=== PATIENT | female | born 1965 | race Caucasian/White ===

== ENCOUNTER 2019-09-01 12:13 | Emergency (ER) | payer OTHER, SELFPAY ==
--- NOTE | ~2019-09-01 | CT_ITS ---
EXAMINATION: CT cervical spine wo con DATE: 09/01/2019 15:46 INDICATION: Left head, neck and arm pain TECHNIQUE: Computed tomography (CT) of the cervical spine was performed without intravenous contrast. Automated exposure control and iterative reconstruction technique were employed. The dose-length pro duct was 365.43 mGy-cm. COMPARISON: None FINDINGS: Mild reversal of the normal cervical lordosis. 2 mm anterolisthesis of T2 on T3.. Vertebral body heig hts are normal. Moderate disc height loss at C4-C5 and C6-C7, mild to moderate disc height loss at C5 -C6. Mild disc height loss at T2-T3. Mild mosaic attenuation likely related to air trapping seen with small airway disease at the bilateral apices of the lungs. Cervical soft tissues are unremarkable. T he following disc levels are specifically discussed: C2-C3: The disc does not extend beyond the endplate margin. There is mild bilateral uncovertebral moni nt osteoarthritis. There is mild right and severe left facet joint osteoarthritis. There is minimal l eft neural foraminal stenosis. There is no central canal stenosis. C3-C4: The disc does not extend beyond the endplate margin. There is minimal bilateral uncovertebral joint osteoarthritis. There is moderate bilateral facet joint osteoarthritis. There is minimal right neural foraminal stenosis. There is no central canal stenosis. C4-C5: Posterior disc osteophyte complex. There is moderate right and moderate to severe left uncover tebral joint osteoarthritis. There is mild bilateral facet joint osteoarthritis. There is mild left a nd mild to moderate right neural foraminal stenosis. There is mild central canal stenosis. C5-C6: Posterior disc osteophyte complex. There is mild to moderate right and severe left uncovertebr al joint osteoarthritis. There is mild left and mild to moderate right facet joint osteoarthritis. Th ere is moderate right and mild to moderate left neural foraminal stenosis. There is mild central tayler l stenosis. C6-C7: Posterior disc osteophyte complex. There is mild right and moderate left uncovertebral joint o steoarthritis. There is mild to moderate bilateral facet joint osteoarthritis. There is mild bilatera l neural foraminal stenosis. There is mild central canal stenosis. C7-T1: The disc does not extend beyond the endplate margin. There is minimal bilateral uncovertebral joint osteoarthritis. There is moderate to severe bilateral facet joint osteoarthritis. There is mild bilateral neural foraminal stenosis. There is no central canal stenosis. T1-T2: The disc does not extend beyond the endplate margins. There is mild bilateral facet joint oste oarthritis. There is no neural foraminal stenosis. There is no central canal stenosis. T2-T3: Disc is bulging. There is severe bilateral facet joint osteoarthritis. There is mild bilateral neural foraminal stenosis. There is mild central canal stenosis. IMPRESSION: 1. Moderate cervical and upper thoracic spondylosis. No acute osseous abnormality. Reviewed, dictated and finalized at location A. TRUCKER IMPRESSION: 1. Moderate cervical and upper thoracic spondylosis. No acute osseous abnormali ty.
--- NOTE | ~2019-09-01 | CT_ITS ---
EXAMINATION: CT brain wo con EXAM DATE: 09/01/2019 12:49 INDICATION: Left arm hemiparesis, numbness paresthesia. Hypertension. TECHNIQUE: Spiral CT of the head was performed without contrast. Axial, coronal and sagittal images were reviewed. The dose-length product (DLP) for this examination was 605.33 mGy-cm. The exposure w as tailored according to patient size, and iterative reconstruction (ASIR) was used as additional dos e reduction technique. Comparison is made to prior examination from 09/01/2004. FINDINGS: There is no acute intraparenchymal hemorrhage. No evidence of intraparenchymal brain mass lesion. No evidence of acute infarction. There is no mass effect or midline shift. The ventricles are normal in size. There are no extra-axial collections. There are no acute calvarial fractures. T he orbits are unremarkable. Soft tissue is unremarkable. The visualized sinuses and mastoid air gayathri ls are well aerated. Probable incidental right temporal arachnoid cyst. This is not clinically sign ificant finding. IMPRESSION: 1. No acute intracranial findings. 2. Probable incidental right temporal arachnoid cyst. Reviewed, dictated and finalized at location A. K ROOM MANAGER
--- NOTE | ~2019-09-01 | XR_ITS ---
EXAMINATION: XR chest 1V DATE: 09/01/2019 12:57 INDICATION: Left arm pain. Left-sided numbness. TECHNIQUE: A single frontal view of the chest was obtained. COMPARISON: None. FINDINGS: There is mild atelectasis in left lower lung zone. No pleural effusion or pneumothorax. The heart size is normal. Calcified left hilar lymph nodes are consistent with old granulomatous disease . IMPRESSION: 1. Mild atelectasis in left lower lung zone. Reviewed, dictated and finalized at location A. HER LEVELER
[2019-09-01 12:25] VITALS: BP 154/123; PULSE 98; RESP 18; TEMP 37.1; O2SAT 93
--- NOTE | 2019-09-01 12:31 | ECG_ITS ---
Measurements Intervals [place] Rate: 93 P: 31 [place]: 152 QRS: 12 QRSD: 88 T: 0 QT: 349 QTc: 435 Interpretive Statements SINUS RHYTHM LOW QRS VOLTAGE IN PRECORDIAL LEADS DELAYED PRECORDIAL R/S TRANSITION BORDERLINE ST-T WAVE ABNORMALITY- INF/LAT LEADS BASELINE ARTIFACT- I, II, III, AVR, AVL, AVF, V1 BORDERLINE ECG Electronically Signed On 09-01-2019 12:55:31 [employer] COLORING OPERATOR by Han Lagos D.O.
[2019-09-01 12:46] LABS: Basophils Absolute Auto 0.1 K/mm3 (0.0-0.1); Basophils Percent Auto 1.1 % (0.2-1.2); Eosinophils Absolute Auto 0.2 K/mm3 (0-0.3); Eosinophils Percent Auto 2.4 % (0-4.4); Hematocrit 41.8 % (37.0-47.0); Hemoglobin 14.3 g/dL (12.0-15.0); Immature Granulocyte Absolute 0.02 K/mm3 (0.00-0.031); Immature Granulocyte Percent A 0.3 % (0-0.5); Lymphocytes Absolute Auto 2.58 K/mm3 (0.9-3.2); Lymphocytes Percent Auto 41.2 % (18.3-44.2); Mean Corpuscular HGB Conc 34.2 g/dl (32-36); Mean Corpuscular Hemoglobin 30.2 pg (26-34); Mean Corpuscular Volume 88.4 fl (80-100); Mean Platelet Volume 10.4 fl (7.4-10.4); Monocytes Absolute Auto 0.5 K/mm3 (0.1-0.6); Monocytes Percent Auto 8.1 % (2.6-8.5); Neutrophils Absolute Auto 2.9 K/mm3 (1.3-6.7); Neutrophils Percent Auto 46.9 % (45.5-73.1); Platelet Count Result 276 k/mm3 (150-375); Red Blood Count 4.73 M/mm3 (4.2-5.4); Red Cell Distribution Width 12.7 % (11.5-14.5); White Blood Count 6.3 K/mm3 (4.5-10.0)
[2019-09-01 12:55] LABS: INR 0.9; Partial Thromboplastin Time 23.2 SECONDS (22.3-36.8); Prothrombin Time 11.5 Seconds (11.1-14.7)
[2019-09-01 12:57] LABS: Blood Urea Nitrogen 19 mg/dL (7-17); Calcium 9.7 mg/dL (8.4-10.2); Carbon Dioxide 25 mmol/L (22-30); Chloride 100 mmol/L (98-107); Estimated CRCL calculation 90 ml/min; Estimated Glomerular Filt Rate > 60; Glucose 89 mg/dL (65-105); Potassium 3.6 mmol/L (3.4-5.0); Sodium 135 mmol/L (137-145)
[2019-09-01 13:09] LABS: Troponin I < 0.012 ng/mL (0.000-0.034)
[2019-09-01 15:05] VITALS: BP 166/117; PULSE 89; RESP 18; O2SAT 97
--- NOTE | 2019-09-01 15:12 | ED.NEUROSD ---
HPI - Neuro Symptoms/Deficit General Chief Complaint: Neuro Symptoms/Deficit Stated Complaint: left head, neck, and arm pain Time Seen by Provider: 09/01/19 15:04 Source: patient Mode of arrival: ambulatory Limitations: no limitations History of Present Illness HPI Narrative: Pt is a 54 y/o female who presents to the ED with c/o pain to her lt arm that started Sunday night (3 days ago). Pt reports associated numbness from her lt jaw to her bottom lip. She has posterior neck pain that is aggravated when she turns her head to the rt. Pt denies abnormal speech, rash, or inability to move her extremities. Pt took Ibuprofen at 6AM. Onset (ago): day(s) (3) Location: left arm Quality: constant (pain) Relieving factors: none Associated symptoms: other (numbness from lt jaw to bottom lip, posterior neck pain) Treatments Prior to Arrival: other medication (Ibuprofen 6AM) Related Data Home Medications Medication Instructions Recorded Confirmed estradiol mg 09/01/19 Allergies Allergy/AdvReac Type Severity Reaction Status Date / Time No Known Allergies Allergy Verified 09/01/19 15:07 Review of Systems Review of Systems: All systems reviewed & are unremarkable except as noted in HPI and below Musculoskeletal: Musculoskeletal: Reports neck pain (posterior), Reports numbness (lt jaw to lower lip) and Reports other (lt arm pain, ability to move all extremities) Integumentary/Breasts: Skin/Breast: Denies rash Neurologic: Denies Abnormal speech present [facility] Past Medical History Medical History (Updated 09/01/19 @ 17:31 by Efra Gee DO) No significant past medical history Surgical History Surgical History (Updated 09/01/19 @ 15:45 by Jaki Greenberg) No significant past surgical history Family History Family History (Updated 08/18/15 @ 14:38 by DOCTOR UNKNOWN) Grandparent Diabetes mellitus Social History Social History (Updated 09/01/19 @ 15:46 by Jaki Greenberg) Smoking status: Never smoker Gender identity (if verbalized by the patient): Female Exam Narrative: Exam Narrative: APPEARANCE: No acute distress, nontoxic, resting in bed EYES: EOMI HEENT: Normocephalic, atraumatic, OMM TMs clear bilaterally, nares patent, no erythema exudate posterior pharynx Neck: Supple, no midline tenderness palpation, tender palpation over left para 2 muscles C5-7 and left trapezius muscle with muscle spasm present, pain with rotation the left greater than 45 degrees, no pain with full rotation of the right RESPIRATORY: No respiratory distress Clear to auscultation bilaterally with no rhonchi wheezing or rales. CARDIOVASCULAR: Regular rate and rhythm without murmurs rubs or gallops. ABDOMINAL: Soft, nontender, nondistended, no rebound or guarding MUSCULOSKELETAl: Moves all extremities. No clubbing, cyanosis or edema. NEURO: Awake and alert x 3. Following commands, speech normal, cranial nerves II through XII grossly intact bilaterally, muscle strength 5 out of 5 bilateral upper and lower extremities SKIN:: Warm, dry. No rashes lesions or abrasions PSYCHIATRIC: Normal affect/mood, Course Course Emergency Course: Patient states she is feeling better following Valium and Toradol I did discuss with the patient her blood pressure. She states she is due to take her lisinopril this evening. Discussed she needs to have follow-up checks with her primary care physician Discussed with patient results of workup and diagnosis. Discussed need for follow-up with primary care, proper use of medication, and reasons to return to the emergency department. Patient understands and agrees to current treatment plan Vital Signs Vital signs: Vital Signs Temperature 98.8 F 09/01/19 12:25 Pulse Rate 98 09/01/19 12:25 Respiratory Rate 18 09/01/19 12:25 Blood Pressure 154/123 H 09/01/19 12:25 Pulse Oximetry 93 09/01/19 12:25 Temperature 98.8 F 09/01/19 12:25 Pulse Rate 89 09/01/19 15:05 Respiratory Rate 18
[2019-09-01] MEDS: KETOROLAC 30 MG/ML VIAL (*BKC) IV PUSH (15:47)
--- NOTE | 2019-09-01 16:15 | PC.NURSE ---
Pt extremely drowsy; states after receiving diazepam that pt became drowsy. Pt had stated she doesn't respond to pain meds very well. Pt easily arouseable but unable to keep eyes open or hold conversation. States is feeling much better at present.
== END 2019-09-01 17:46 | disposition home or self-care (01) ==
PROVIDERS: Emergency Provider Emergency Medicine; PCP Internal Medicine
DX: M62.830 Muscle spasm of back (principal); M54.12 Radiculopathy, cervical region; R94.31 Abnormal electrocardiogram [ECG] [EKG]; R91.8 Other nonspecific abnormal finding of lung field
CPT/HCPCS: 36415; 70450; 71045; 72125; 80048; 84484; 85025; 85610; 85730; 93005; 96374; 96375; 99284; J1885; J3360

== ENCOUNTER 2020-12-02 09:38 | Outpatient (CLI) | payer OTHER, SELFPAY ==
--- NOTE | ~2020-12-02 | MM_ITS ---
EXAMINATION: MM screening [facility] BI w mame HISTORY: Screening TECHNIQUE: Craniocaudal and mediolateral oblique 3-D tomosynthesis images were obtained and synthetic 2-D images were generated. CAD analysis was submitted and interpreted. COMPARISON: Comparison to multiple prior studies sequentially, with oldest reviewed study dated 05/31. BREAST PARENCHYMAL COMPOSITION: Breast composed of scattered areas of fibroglandular density. FINDINGS: There is no evidence of suspicious mass, calcification, or architectural distortion to sugg est malignancy in either breast. There has been no suspicious interval change. IMPRESSION: 1. No mammographic evidence of malignancy. 2. Recommend routine screening mammography in one year. BI-RADS Category 1: Negative Reviewed, dictated and finalized at location A.
== END 2020-12-02 09:39 | disposition home or self-care (01) ==
LOC: ANHIMG 09:41
PROVIDERS: Visit Provider Obstetrics & Gynecology
DX: Z12.31 Encounter for screening mammogram for malignant neoplasm of breast (principal)
CPT/HCPCS: 77063; 77067

== ENCOUNTER 2023-08-14 10:03 | Outpatient (CLI) | payer OTHER, SELFPAY ==
--- NOTE | ~2023-08-14 | MM_ITS ---
EXAMINATION: MM screening [facility] BI w mame HISTORY: Screening TECHNIQUE: Craniocaudal and mediolateral oblique 3-D tomosynthesis images were obtained and synthetic 2-D images were generated. CAD analysis was submitted and interpreted. COMPARISON: 12/02/2020 BREAST PARENCHYMAL COMPOSITION: Breast composed of scattered areas of fibroglandular density FINDINGS: There is no evidence of suspicious mass, calcification, or architectural distortion to sugg est malignancy in either breast. There has been no suspicious interval change. IMPRESSION: 1. No mammographic evidence of malignancy. 2. Recommend routine screening mammography in one year. BI-RADS Category 1: Negative Reviewed, dictated and finalized at location A. ANALYST
== END 2023-08-14 10:04 | disposition home or self-care (01) ==
PROVIDERS: PCP Family Medicine; Visit Provider Nurse Practitioner
DX: Z12.31 Encounter for screening mammogram for malignant neoplasm of breast (principal)
CPT/HCPCS: 77063; 77067

== ENCOUNTER 2023-11-22 09:10 | Day surgery (SDC) | payer OTHER, SELFPAY ==
[2023-11-02 11:11] VITALS: BMI 20.5
[2023-11-22 10:26] VITALS: BP 128/95; PULSE 72; RESP 18; TEMP 37.1; O2SAT 100; BMI 20.2
--- NOTE | 2023-11-22 10:26 | WPDANESEPPF ---
Anes - Initial Pre Proc Eval Procedure: Operation Date: 11/22/23 11:00 Proposed Procedures p Screening Colonoscopy - Narendra Pham MD Date/Time: 11/22/23 10:26 Surgeon: Narendra Pham MD Pre Op Diagnosis: Screening for malignant neoplasm of colon Patient Data Age: 58 Gender: F Height: 1.73 m Weight: 61.235 kg Allergies Allergy/AdvReac Type Severity Reaction Status Date / Time No Known Allergies Allergy Verified 11/22/23 10:14 Home Medications Medication Instructions Recorded Confirmed Type estradiol 1 mg tablet 1 mg PO DAILY 09/01/19 11/22/23 History ascorbic acid (vitamin C) 500 mg 500 mg PO DAILY 12/21/21 11/22/23 History capsule aspirin 81 mg tablet,delayed 81 mg PO DAILY 12/21/21 11/22/23 History release biotin 10,000 mcg capsule 10,000 mcg PO DAILY 12/21/21 11/22/23 History lactobacillus combination no.9 4 4,000 mmu cells PO DAILY 12/21/21 11/22/23 History billion cell capsule (Adult 50 Plus Probiotic) lutein 20 mg capsule 20 mg PO DAILY 12/21/21 11/22/23 History magnesium 250 mg tablet 500 mg PO DAILY 12/21/21 11/22/23 History mecobalamin (vitamin B12) 1,000 1,000 mcg PO DAILY 12/21/21 11/22/23 History mcg chewable tablet milk thistle 500 mg capsule 1,000 mg PO DAILY 12/21/21 11/22/23 History multivitamin 1 tablet PO DAILY 12/21/21 11/22/23 History omega 4-dgt-rxj-fish oil 1,200 mg 2 cap PO DAILY 12/21/21 11/22/23 History (144 mg-216 mg) capsule (Fish Oil) calcium 1 tablet PO DAILY #1 tablet 12/07/22 11/22/23 Rx carbonate,citrate-magnesium oxide 200 mg calcium-50 mg tablet cinnamon bark 500 mg capsule 500 mg PO DAILY #1 cap 12/07/22 11/22/23 Rx (Cinnamon) coenzyme Q10 10 mg capsule (Co 10 mg PO ONCE #1 cap 12/07/22 11/22/23 Rx Q-10) garlic 500 mg capsule 500 mg PO DAILY #1 cap 12/07/22 11/22/23 Rx lisinopril 10 0.5 tablet PO DAILY #90 tabs 12/07/22 11/22/23 Rx mg-hydrochlorothiazide 12.5 mg tablet turmeric 100 mg-margo 150 1 cap PO DAILY #1 cap 12/07/22 11/22/23 Rx mg-olive 50 mg-oreg 150 mg-capryl capsule cranberry 500 mg capsule 500 mg PO DAILY 10/31/23 11/22/23 History grape seed extract 50 mg capsule 50 mg PO DAILY 10/31/23 11/22/23 History quercetin 500 mg capsule 500 mg PO DAILY 10/31/23 11/22/23 History zinc gluconate 30 mg tablet 30 mg PO DAILY 10/31/23 11/22/23 History sodium,potassium,mag sulfates 17.5 See Rx Instructions PO .COMPLEX 11/02/23 Rx gram-3.13 gram-1.6 gram oral soln #354 mL (Suprep Bowel Prep Kit) Patient hx anesthesia problems: none Family hx anesthesia problems: none Results Review: All pre-operative results and documents have been reviewed as part of the pre-operative evaluation. [facility] Past Medical History Medical History No significant past medical history Surgical History Surgical History Hx of hysterectomy 2004 No significant past surgical history Family History Family History Grandparent Diabetes mellitus Social History Social History Smoking status: Former smoker Tobacco type: cigarettes Second hand tobacco smoke exposure: No Alcohol intake: never Substance use: never Substance use type: does not use Lack of Transportation: No Lack of Food: Never True Current Housing: I Have Housing Concerned About Future Housing: No Difficulty Paying Gas/Electric Bills: No Difficulty Paying for Meds: No Currently Unemployed: No Education: High School Diploma/GED Difficulty w/ Childcare or Family Care: No Living arrangements: with family Gender identity (if verbalized by the patient): Female Anes - Eval Final PreProcedure Day of Procedure 11/22/23 10:26 Patient weight: normal Heart: regular rate and rhythm Lungs: clear to aus
[2023-11-22] MEDS: LACTATED RINGERS 1,000 ML 150 ML IV CONT (10:36)
--- NOTE | 2023-11-22 10:48 | PM.HPGS ---
History of Present Illness History of Present Illness Consent: Risks, benefits, and alternatives have been discussed and questions answered. Patient agrees to proceed with procedure. Chief complaint: Screening for malignant neoplasm of colon Narrative: Miranda Chery is a 58 year old female presents for screening colonoscopy. Patient's current weight appetite and bowel movements are normal. Patient denies abdominal pain. Has had no pain. She denies any bleeding. S medical history is significant for uterine cancer for which she is status post hysterectomy. Family history noncontributory. Review of Systems Review of Systems: All systems reviewed & are unremarkable except as noted in HPI and below PMFSH Past Medical History Medical History No significant past medical history Surgical History Surgical History Hx of hysterectomy 2004 No significant past surgical history Family History Family History Grandparent Diabetes mellitus Social History Social History Smoking status: Former smoker Tobacco type: cigarettes Second hand tobacco smoke exposure: No Alcohol intake: never Substance use: never Substance use type: does not use Lack of Transportation: No Lack of Food: Never True Current Housing: I Have Housing Concerned About Future Housing: No Difficulty Paying Gas/Electric Bills: No Difficulty Paying for Meds: No Currently Unemployed: No Education: High School Diploma/GED Difficulty w/ Childcare or Family Care: No Living arrangements: with family Gender identity (if verbalized by the patient): Female Meds Home Medications and Allergies Home Medications Medication Instructions Recorded Confirmed Type estradiol 1 mg tablet 1 mg PO DAILY 09/01/19 11/22/23 History ascorbic acid (vitamin C) 500 mg 500 mg PO DAILY 12/21/21 11/22/23 History capsule aspirin 81 mg tablet,delayed 81 mg PO DAILY 12/21/21 11/22/23 History release biotin 10,000 mcg capsule 10,000 mcg PO DAILY 12/21/21 11/22/23 History lactobacillus combination no.9 4 4,000 mmu cells PO DAILY 12/21/21 11/22/23 History billion cell capsule (Adult 50 Plus Probiotic) lutein 20 mg capsule 20 mg PO DAILY 12/21/21 11/22/23 History magnesium 250 mg tablet 500 mg PO DAILY 12/21/21 11/22/23 History mecobalamin (vitamin B12) 1,000 1,000 mcg PO DAILY 12/21/21 11/22/23 History mcg chewable tablet milk thistle 500 mg capsule 1,000 mg PO DAILY 12/21/21 11/22/23 History multivitamin 1 tablet PO DAILY 12/21/21 11/22/23 History omega 6-lxn-ukp-fish oil 1,200 mg 2 cap PO DAILY 12/21/21 11/22/23 History (144 mg-216 mg) capsule (Fish Oil) calcium 1 tablet PO DAILY #1 tablet 12/07/22 11/22/23 Rx carbonate,citrate-magnesium oxide 200 mg calcium-50 mg tablet cinnamon bark 500 mg capsule 500 mg PO DAILY #1 cap 12/07/22 11/22/23 Rx (Cinnamon) coenzyme Q10 10 mg capsule (Co 10 mg PO ONCE #1 cap 12/07/22 11/22/23 Rx Q-10) garlic 500 mg capsule 500 mg PO DAILY #1 cap 12/07/22 11/22/23 Rx lisinopril 10 0.5 tablet PO DAILY #90 tabs 12/07/22 11/22/23 Rx mg-hydrochlorothiazide 12.5 mg tablet turmeric 100 mg-margo 150 1 cap PO DAILY #1 cap 12/07/22 11/22/23 Rx mg-olive 50 mg-oreg 150 mg-capryl capsule cranberry 500 mg capsule 500 mg PO DAILY 10/31/23 11/22/23 History grape seed extract 50 mg capsule 50 mg PO DAILY 10/31/23 11/22/23 History quercetin 500 mg capsule 500 mg PO DAILY 10/31/23 11/22/23 History zinc gluconate 30 mg tablet 30 mg PO DAILY 10/31/23 11/22/23 History sodium,potassium,mag sulfates 17.5 See Rx Instructions PO .COMPLEX 11/02/23 Rx gram-3.13 gram-1.6 gram oral soln #354 mL (Suprep Bowel Prep Kit) Allergies Allergy/AdvReac Type Severity React
[2023-11-22 11:46] VITALS: BP 110/71; PULSE 74; RESP 16; O2SAT 100
[2023-11-22 11:56] VITALS: BP 114/66; PULSE 68; RESP 16; O2SAT 97
--- NOTE | 2023-11-22 11:57 | WPDANESPN ---
Anes - Prog Note Post-Op Date/Time: 11/22/23 11:57 Cardiovascular status: normal Respiratory status: normal Airway patency: baseline Mental status: baseline Post-Op hydration status: normal Vital Signs: Last Vital Signs Temp 37.1 C 11/22/23 10:26 Pulse 74 11/22/23 11:46 Resp 16 11/22/23 11:46 BP 110/71 11/22/23 11:46 Pulse Ox 100 11/22/23 11:46 O2 Del Method Room Air 11/22/23 11:46 Pain Score (VAS): 0 Post-procedural complaints: none Patient Feedback: Patient satisfied with anesthetic care. Other Findings: Patient vital signs back to baseline. Patient denies nausea and vomiting. Patient's pain under control. Patient OK for discharge.
[2023-11-22 12:06] VITALS: BP 126/73; PULSE 51; RESP 20; O2SAT 100
== END 2023-11-22 12:27 | disposition home or self-care (01) ==
PROVIDERS: PCP Family Medicine; Visit Provider Internal Medicine Gastroenterology
PROC: 0DJD8ZZ Inspection of Lower Intestinal Tract, Via Natural or Artificial Opening Endoscopic (ICD-10-PCS; CPT 45378; principal; 2023-11-22 11:00)
DX: Z12.11 Encounter for screening for malignant neoplasm of colon (principal); K57.30 Diverticulosis of large intestine without perforation or abscess without bleeding; K64.8 Other hemorrhoids
CPT/HCPCS: 45378

== ENCOUNTER 2024-02-20 12:40 | Outpatient (CLI) | payer OTHER, SELFPAY ==
--- NOTE | ~2024-02-20 | CT_ITS ---
EXAMINATION: CT abdomen pelvis w con DATE: 02/20/2024 13:06 INDICATION: Abdomen injury. TECHNIQUE: Computed tomography (CT) of the abdomen and pelvis was performed with 100 cc Omnipaque 350 intravenous contrast. The dose-length product was 294.78 mGy-cm. Automated exposure control and iter ative reconstruction technique were employed. COMPARISON: None. FINDINGS: Lung bases are unremarkable. Heart size normal. Small pericardial effusion. No pleural effu arabella. There are multiple liver cysts. The spleen, pancreas, adrenal glands and kidneys are unremarkab le. Gallbladder is present. Nonobstructive bowel gas pattern. No evidence for hernia. No free air or free fluid. No significant vascular abnormality. No lymphadenopathy. Moderate lumbar spondylosis. IMPRESSION: 1. No acute abdominal abnormality. 2: Small pericardial effusion. Reviewed, dictated and finalized at location B.
[2024-02-20 12:56] LABS: Estimated Glomerular Filt Rate > 60
== END 2024-02-20 12:41 ==
LOC: MICIMG 12:40
PROVIDERS: PCP Nurse Practitioner Family; Visit Provider Nurse Practitioner Family
DX: I31.39 Other pericardial effusion (noninflammatory) (principal)
CPT/HCPCS: 74177; Q9967

== ENCOUNTER 2024-02-26 11:42 | Outpatient (CLI) | payer OTHER, SELFPAY ==
--- NOTE | ~2024-02-26 | US_ITS ---
Limited Abdominal Sonogram: Real-time sonographic imaging of the right upper quadrant was performed. Clinical History: Other specified diseases of liver Findings: The liver appears normal with no evidence of solid mass lesion or bile duct dilatation. Ma in portal vein demonstrates normal direction of flow. Several scattered hepatic cysts present. The ga llbladder is well distended, and appears normal with no evidence of gallstone or wall thickening. The common bile duct measures 2 mm. The visualized pancreas, aorta, and IVC are unremarkable. Impression: No significant abnormality seen. Several scattered hepatic cysts are noted. Reviewed, dictated and finalized at location . Impression: No significant abnormality seen. Several scattered hepatic cysts are noted.
== END 2024-02-26 11:43 ==
PROVIDERS: PCP Nurse Practitioner Family; Visit Provider Nurse Practitioner Family
DX: K76.89 Other specified diseases of liver (principal)
CPT/HCPCS: 76705

== ENCOUNTER 2024-09-08 15:28 | Outpatient (CLI) | payer OTHER, SELFPAY ==
--- NOTE | ~2024-09-08 | MM_ITS ---
EXAMINATION: MM screening [facility] BI w mame HISTORY: Screening TECHNIQUE: Craniocaudal and mediolateral oblique 3-D tomosynthesis images were obtained and synthetic 2-D images were generated. CAD analysis was submitted and interpreted. COMPARISON: Comparison to multiple prior studies sequentially, with oldest reviewed study dated 07/2014. BREAST PARENCHYMAL COMPOSITION: Not dense: There are scattered areas of fibroglandular density. FINDINGS: There is no evidence of suspicious mass, calcification, or architectural distortion to sugg est malignancy in either breast. There has been no suspicious interval change. IMPRESSION: 1. No mammographic evidence of malignancy. 2. Recommend routine screening mammography in one year. BI-RADS Category 1: Negative Reviewed, dictated and finalized at location B. URIERE
== END 2024-09-08 15:29 | disposition home or self-care (01) ==
LOC: ANHIMG 16:02
PROVIDERS: PCP Nurse Practitioner Family; Visit Provider Student in an Organized Health Care Education/Training Program
DX: Z12.31 Encounter for screening mammogram for malignant neoplasm of breast (principal)
CPT/HCPCS: 77063; 77067